=== PATIENT | male | born 1945 | race Caucasian/White ===

== ENCOUNTER 2019-09-13 14:16 | Emergency (ER) | payer OTHER ==
[~2019-09-13] VITALS: Ht 185.4 cm; Wt 102.1 kg
[~2019-09-13 14:16] MED LIST: ACETAMINOPHEN325 M1 PO; ASPIRIN EC325 M1 PO; BAYER CHEWABLE81 MG PO; CALCIUM 600 +1 EAC1 PO; CARDIZEM CD120 MG PO; CENTRUM SILVER1 EAC2 PO; CLONAZEPAM 1 MG1 M1 PO; DEPO-TESTO100 MG/1 M IM; ELIQUIS5 MG PO; FOSAMAX 70 MG T70 MG PO; IBUPROFEN 200200 M1 PO; INDOMETHACIN 2525 MG PO; MULTI-VITAMIN1 EAC5 PO; PROPRANOLOL 4040 M1 PO; SORINE 80 MG TA80 M1 PO; TYLENOL325 MG PO; VITAMINC500 PO; VITCB500GO PO
[2019-09-13] MEDS ORDERED: ACID REDUCER20 MG PO (14:28)
[2019-09-13] MEDS ORDERED: FLOMAX0.4 MG PO (14:28)
[2019-09-13] MEDS ORDERED: PROTONIX40 M2 PO (14:28)
[2019-09-13] MEDS ORDERED: MONTELUKAST SODI4 M1 PO (14:28)
[2019-09-13] MEDS ORDERED: FLEXERIL PO (15:57)
[2019-09-13 16:39] VITALS: BP 115/65
== END 2019-09-13 16:39 | disposition home or self-care (01) ==
LOC: M.ERS 14:16
DX: S16.1XXA Strain of muscle, fascia and tendon at neck level, initial encounter (principal); S29.012A Strain of muscle and tendon of back wall of thorax, initial encounter; R07.89 Other chest pain; Z91.013 Allergy to seafood; Z88.8 Allergy status to other drugs, medicaments and biological substances; V89.2XXA Person injured in unspecified motor-vehicle accident, traffic, initial encounter; Y93.89 Activity, other specified; Y92.89 Other specified places as the place of occurrence of the external cause; Y99.8 Other external cause status